=== PATIENT | male | born 1995 | race Native Hawaiian/Other Pacific Islander ===

== ENCOUNTER 2017-09-26 07:48 | Outpatient (CLI) | payer OTHER ==
--- NOTE | 2017-09-26 11:10 | MRI Report ---
EXAM: LEFT KNEE MRI WITHOUT CONTRAST EXAM DATE: 09/26/2017 08:33 AM. CLINICAL HISTORY: SPRAIN OF POSTERIOR CRUCIATE LIGAMENT OF LT KNEE. COMPARISON: None. TECHNIQUE: Multiplanar, multisequence T1-weighted and fluid-sensitive sequences of the knee without c ontrast. Other: None. FINDINGS: Bones: No fractures or subluxations. No marrow edema. No bone lesions. Articular Cartilage: Unremarkable. Medial Meniscus: The medial meniscus is intact. Lateral Meniscus: The lateral meniscus is intact. Cruciate Ligaments: The anterior and posterior cruciate ligaments are intact. Collateral Ligaments: The medial collateral and lateral collateral ligamentous structures are intact. Tendons: The quadriceps, patellar, semimembranosus, and popliteus tendons are unremarkable. Musculature: No edema or fatty atrophy. Other: No effusion. No popliteal cyst. No loose bodies. The medial and lateral retinacula are intact . The subcutaneous tissues and fat pads are unremarkable. IMPRESSION: No MRI abnormalities in the knee. [facility] MUSCULOSKELETAL RADIOLOGY SECTION Referring Provider Line: [phone] SITE ID: [id number]
== END 2017-09-26 07:49 | disposition home or self-care (01) ==
LOC: DI 07:48
PROVIDERS: ATTEND Student in an Organized Health Care Education/Training Program
DX: M23.52 Chronic instability of knee, left knee (principal)

== ENCOUNTER 2019-04-20 12:10 | Emergency (ER) | payer OTHER ==
[2019-04-20 12:27] VITALS: BP 138/84
[2019-04-20] MEDS ORDERED: KETOROLAC 60 MG/2 ML VIAL IM STA (13:52)
[2019-04-20] MEDS ORDERED: CHERRY SYRUP 10 ML UDC PO ONE (13:52)
[2019-04-20] MEDS ORDERED: DEXAMETHASONE 10 MG/ML VIAL PO STA (13:52)
--- NOTE | 2019-04-20 13:52 | ED Physician Documentation ---
PD HPI URI - Stated complaint Stated Complaint: COUGH/TERRY - Chief complaint Chief Complaint: Fever - History obtained from History obtained from: Patient, Family - History of Present Illness Timing - onset: How many days ago (5) Timing duration: Days (5) Timing details: Gradual onset, Still present Associated symptoms: Fever, Nasal congestion, Rhinorrhea, Sinus pain, Sore throat, Dry cough, Other (headache) Contributing factors: Sick contact (son now sick with similar) Improves by: Rest, Medication Similar symptoms before: Has not had sx before Recently seen: Not recently seen - Additional information Additional information: Previously well 23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 He states the headache is now worsening. He had a sore throat and that has now improved to the point where he can swallow. He has brought his young son and here who is caught this from him and he was positive for influenza B. Review of Systems Constitutional: reports: Fever, Chills, Myalgias, Fatigue Eyes: reports: Photophobia. denies: Decreased vision Ears: denies: Ear pain Nose: reports: Rhinorrhea / runny nose, Congestion Throat: reports: Sore throat Cardiac: denies: Chest pain / pressure, Palpitations Respiratory: reports: Dyspnea, Cough : denies: Dysuria Skin: denies: Rash PD PAST MEDICAL HISTORY - Present Medications Home Medications: Ambulatory Orders Medication Instructions Recorded Confirmed Amox/Clav 875/125 [Augmentin] 1 each PO Q12H #20 tablet 04/20/19 - Allergies Allergies/Adverse Reactions: Allergies Allergy/AdvReac Type Severity Reaction Status Date / Time No Known Drug Allergies Allergy Verified 04/20/19 12:27 PD ED PE NORMAL - Vitals Vital signs reviewed: Yes (hypertensive) - General General: Alert and oriented X 3, Well developed/nourished, Other (patient looks like he does not feel well. 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, No motor deficit, No sensory deficit, Normal speech Eye Opening: Spontaneous Motor: Obeys Commands Verbal: Oriented GCS Score: 15 - Psych Psych: Normal mood, Other (affect is flat ) Results - Vitals Vitals: Vital Signs - 24 hr 04/20/19 12:24 Temperature 36.9 C Heart Rate 84 Respiratory 16 Rate Blood Pressure 138/84 H O2 Saturation 98 Oxygen O2 Source Room air PD MEDICAL DECISION MAKING - ED course Complexity details: reviewed results, re-evaluated patient, considered diff erential, d/w patient, d/w family ED course: 23-year-old male with a headache and URI exposed to influenza is administered dexamethasone 10 mg orally and Toradol 60 mg IM. He has been ill 5 days and Tamiflu is not indicated. He has OM in addition to the flu and antibiotic is indicated. Departure - Departure Disposition: 01 Home, Self Care Clinical Impression: Influenza B Otitis media Qualifiers: Otitis media type: suppurative Chronicity: acute Laterality: bilateral Recurrence: non-recurrent Spontaneous tympanic membrane rupture: without spontaneous rupture Qualified Code(s): H66.003 - Acute suppurative otitis media without spontaneous rupture of ear drum, bilateral Condition: Stable Instructions: ED Flu, ED Otitis Media Acute Adult Follow-Up: MINERVA HDEZ MD [Primary Care Provider] - Prescriptions: Amox/Clav 875/125 [Augmentin] 1 each PO Q12H #20 tablet Forms: Activity restrictions
== END 2019-04-20 14:14 | disposition home or self-care (01) ==
LOC: ED 12:10
DX: J10.1 Influenza due to other identified influenza virus with other respiratory manifestations (principal); H66.003 Acute suppurative otitis media without spontaneous rupture of ear drum, bilateral
CPT/HCPCS: 96372; 99283; 99284; A9270

== ENCOUNTER 2021-09-23 12:45 | Outpatient (CLI) | payer OTHER ==
[2021-09-23 13:37] VITALS: BP 121/75
--- NOTE | 2021-09-23 13:38 | SLEEP CARE CONSULTATION ---
Information from patient questionnaire entered by Norma Shankar MA. I have reviewed and concur with the information entered by Norma Shankar MA. This document represents the service I personally performed and the decisions made by me, Abbi Jean-Baptiste ARNP. History of Present Illness Service Date and Time: 09/23/2021 1245 Reason for Visit: New patient (ONSET 06/01/21, ) Chief Complaint: reports: Insomnia, Unrefreshed sleep, Snoring, Observed pauses in breathing Date of Onset: 6 MONTHS Usual bedtime: 6189-2175 Time it takes to fall asleep: 1-3 HOURS Snores at night: Yes Observed to quit breathing while asleep: Yes (per ) Sleeps alone due to snoring: No Number of times waking at night: 2-4 Reasons for waking at night: reports: Gasping for air (when his nostril will clog), Pain, Bathroom, Other. denies: Choking, Snoring Toss, Turn, or Twitch while sleeping: Yes Recalls having dreams: Yes Usually gets out of bed at: [id number] Feels refreshed in the morning: No (takes an hour to fully wake up) Morning headache: Yes (3-4 days a week, minor; last until afternoon to days) Sleepy or fatigued during the day: Yes Ever fallen asleep while driving: No Takes day naps: No Dreams during day naps: No Prior sleep studies: No Additional HPI information: I had the pleasure of seeing LORAINE SUAREZ today regarding the possibility of him having a sleep disorder. His current complaints are insomnia, snoring and observed pauses in breathing. He was seeing his PCM for his hypertension and migraines. He was told he needed a sleep study to see if he had sleep apnea. He has difficulty falling asleep at night, usually over an hour, 1-3 at times. He feels sometimes like his body goes to sleep but his mind keeps on working. Once he goes to sleep he will sleep throughout the night. He will wake up 2-4 times a night and is able to go back to sleep. His symptoms seem to have increased about 6 months ago when he had his workload at work doubled when he lost his counterpart worker to help him in his job. 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 Patient is and lives in [place]. Have you smoked in the past 12 months: No Alcohol use: Yes Alcohol amount and frequency: 8-12 X MONTHLY Caffeine use: Yes Caffeine amount and frequency: 3-5 X DAILY Family History Family history of sleep disordered breathing: No Allergies and Home Medications Drug allergies reviewed: Yes (NKDA) Home medication list reviewed: Yes Allergy and home medication list: Allergies No Known Drug Allergies Allergy (Verified 04/20/19 12:27) Medications: Hydrochlorothiazide 12.5 mg Lisinopril 10 mg Sumatriptan 25 mg, prn Zofran 4 mg, prn Review of Systems Weight gain over past 5 years: 30-35 lbs after knee injury Cardiovascular: reports: high blood pressure Gastrointestinal: reports: heartburn Neurological: reports: headaches. denies: seizure, head trauma Psychiatric: denies: anxiety, depression, mood disorder Ear/Nose/Throat: reports: wisdom teeth removed. denies: tonsillectomy Immunologic: denies: allergies to food or environment Physical Exam Vital signs obtained and entered by: Eduardo SHANKAR CMA AAMA Blood Pressure: 121/75 (RESP 16, PULSE 68, LEFT) Cuff size: wrist Heart Rate: 76 O2 Saturation: 98 (PAPER MASK) Height: 5 ft 9 in Weight: 182 lb (PT CLOTHES) Body Mass Index: 26.9 BMI Classification: Overweight Neck circumference: 14 (INCHES) Mouth and throat: narrow oropharynx Soft palate: long Hard palate: normal Uvula: long Uvula visualization: 50% Mallampati Class II Tongue: enlarged in size with teeth rowe on lateral edges Tonsils: small Neck: normal w/o lymphadenopathy or thyromegaly Heart: regular rate and rhythm Lungs: clear bilaterally Impression and Plan 1. Suspected Obstructive Sleep Apnea-Hypopnea Syndrome, as suggested by a history of loud and irregular snoring, observed cessation of breath while asleep, gasping or choking in sleep, morning headache, unrefreshed sleep, and excessive daytime sleepiness. Narrow oropharynx and obesity are common predisposing factors for obstructive sleep apnea-hypopnea syndrome. I recommend proceeding to polysomnography to confirm the diagnosis and to assess severity. If the patient has significant sleep disordered breathing, a manual CPAP titration study will also be performed to find the optimal treatment pressure. I informed the patient of what the sleep studies involve and after some discussion, obtained agreement to proceed. The pathophysiology of obstructive sleep apnea-hypopnea syndrome was discussed with the patient and health risks of cardiovascular and cerebrovascular disease if not treated. Risks of drowsy driving discussed in detail and patient advised to avoid long distance driving and to last puller at the first sign of drowsiness. Patient agreed to plan. * Schedule polysomnography * Avoid long distance driving or driving when feeling sleepy. * Avoid alcohol, sedative and muscle relaxant around bedtime. * Attempt to lose weight. * Review instructions provided by trained office staff on how to prepare for the sleep study. * Return for follow-up after sleep study completed. Counseling Topics: Weight loss health impact Visit Type: In Office Time Spent with Patient (minutes): 30 Provider Statement: I spent 100% of the Face to Face Visit with the patient with greater than 50% spent counseling the patient and coordination of care.
== END 2021-09-23 12:46 | disposition home or self-care (01) ==
LOC: SC 12:45
PROVIDERS: ATTEND Nurse Practitioner Family
DX: R06.83 Snoring (principal); R06.81 Apnea, not elsewhere classified; G47.8 Other sleep disorders; R51.9 Headache, unspecified; G47.10 Hypersomnia, unspecified; E66.3 Overweight; Z68.26 Body mass index [BMI] 26.0-26.9, adult
CPT/HCPCS: 99203; 99212

== ENCOUNTER 2021-10-25 09:44 | Outpatient (CLI) | payer OTHER ==
[2021-10-25 10:15] VITALS: BP 126/78
--- NOTE | 2021-10-25 10:15 | SLEEP CARE CONSULTATION ---
Information from patient questionnaire entered by Norma Reich MA. I have reviewed and concur with the information entered by Norma Reich MA. This document represents the service I personally performed and the decisions made by me, Sonido Ingram MD, [facility]. History of Present Illness Service Date and Time: 10/25/2021 0944 Initial [place] Sleepiness Scale score: 9 (08/2021) Current [place] Sleepiness Scale score: 11 (10/25/2021) Additional HPI information: Mr. Fox returned for follow up of the sleep study he had on 10/05/21. The test showed No significant sleep disordered breathing, with an AHI of 0.6/hr and kailey SaO2 of 91%. During the study, the patient had 2 apneas (2 obstructive, 0 central, 0 mixed) and 2 hypopneas. The longest episode lasted 38.0 seconds. The patient did not sleep supine during this study. The patient was informed of these findings. I explained to him that he does not have significant sleep-disordered breathing. He said he was referred for the test because he has hypertension. Sleep Study - Results Type of Sleep Study: Home sleep study (F/U HOME STUDY, 10/05/21 [facility] [place],) Prior sleep studies: No Allergies and Home Medications Known drug allergies: No Drug allergies reviewed: Yes Home medication list reviewed: Yes Allergy and home medication list: Allergies No Known Drug Allergies Allergy (Verified 04/20/19 12:27) Review of Systems Review of systems same as previous: Yes Physical Exam Vital signs obtained and entered by: MADISON LANGFORD Blood Pressure: 126/78 (RESP 16, PULSE 56, LEFT,) Cuff size: wrist Heart Rate: 67 O2 Saturation: 98 (PAPER MASK) Height: 5 ft 9 in Weight: 184 lb (PT CLOTHES) Body Mass Index: 27.1 BMI Classification: Overweight Impression and Plan IMPRESSION: 1. Hypertension, not explained by obstructive sleep apnea-hypopnea. Further evaluation per his primary care provider. PLAN: 1. Return to the sleep center on as needed basis Follow up with Sleep Care in: as needed Visit Type: In Office Time Spent with Patient (minutes): 10 Provider Statement: I spent 100% of the Face to Face Visit with the patient with greater than 50% spent counseling the patient and coordination of care.
== END 2021-10-25 09:45 | disposition home or self-care (01) ==
LOC: SC 09:44
PROVIDERS: ATTEND Internal Medicine Pulmonary Disease
DX: I10 Essential (primary) hypertension (principal); E66.3 Overweight; Z68.27 Body mass index [BMI] 27.0-27.9, adult
CPT/HCPCS: 99212

== ENCOUNTER 2022-02-16 18:34 | Emergency (ER) | payer OTHER ==
[2022-02-16] MEDS ORDERED: ALBUTEROL 1 PUFF INH STA (20:31)
--- NOTE | 2022-02-16 20:39 | ED Physician Documentation ---
History of Present Illness - Stated complaint Stated Complaint: M/C/WHEEZE - Chief complaint Chief Complaint: Resp - Additonal information Additional information: 26-year-old male presents emergency department for evaluation of cough congest ion and left ear pain as well as wheeze. Symptoms began about 4 days ago. Initially started as a dry cough but has become much more wet and he is having copious nasal secretions. He feels a wheeze when he coughs too hard. He does have some left ear pain that started today but he has not had any fevers nausea or vomiting. He is vaccinated for COVID-19. He has tried Mucinex, Robitussin and TheraFlu without relief Review of Systems Constitutional: denies: Fever, Chills Eyes: reports: Reviewed and negative Ears: reports: Ear pain Nose: reports: Congestion Respiratory: reports: Cough, Wheezing. denies: Dyspnea, Hemoptysis GI: reports: Reviewed and negative : reports: Reviewed and negative Skin: reports: Reviewed and negative Musculoskeletal: reports: Reviewed and negative PD PAST MEDICAL HISTORY - Past Medical History Past Medical History: Yes Cardiovascular: None Respiratory: None Neuro: Migraines Endocrine/Autoimmune: None GI: None : None HEENT: None Psych: None Musculoskeletal: None Derm: None - Past Surgical History Past Surgical History: No - Present Medications Home Medications: Ambulatory Orders Medication Instructions Recorded Confirmed Amox/Clav 875/125 [Augmentin] 1 each PO Q12H #20 tablet 04/20/19 Albuterol Sulf [Ventolin Hfa 1 - 2 puffs INH Q4HR PRN #1 each 02/16/22 Inhaler] Pseudoephedrine [Sudafed] 30 mg PO BID PRN #30 tablet 02/16/22 - Allergies Allergies/Adverse Reactions: Allergies Allergy/AdvReac Type Severity Reaction Status Date / Time No Known Drug Allergies Allergy Verified 02/16/22 19:00 - Social History Does the pt smoke?: No Smoking Status: Never smoker Does the pt drink ETOH?: No Does the pt have substance abuse?: No - Immunizations Immunizations are current?: Yes - POLST Patient has POLST: No PD ED PE NORMAL - General General: Alert and oriented X 3, No acute distress - HEENT HEENT: Atraumatic, PERRL, EOMI, Moist mucous membranes, Pharynx benign, Other (Copious nasal secretions). No: Ears normal (Effusion behind the left ear. Unremarkable right TM) - Neck Neck: Supple, no meningeal sign, No adenopathy - Cardiac Cardiac: RRR, No murmur - Respiratory Respiratory: No respiratory distress. 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 Eye Opening: Spontaneous Motor: Obeys Commands Verbal: Oriented GCS Score: 15 Results - Vitals Vitals: Vital Signs - 24 hr 02/16/22 02/16/22 02/16/22 18:56 20:08 20:26 Temperature 98.6 C H Heart Rate 92 87 80 Respiratory 14 17 17 Rate Blood Pressure 145/100 H O2 Saturation 100 97 100 Oxygen O2 Source Room air - Rads (name of study) cxr Radiology: Final report received (No acute cardiopulmonary pathology) PD MEDICAL DECISION MAKING - ED course Complexity details: reviewed results, re-evaluated patient, considered differential, d/w patient ED course: 26-year-old male presents emergency department for evaluation of cough congestion wheeze and body aches. Also reporting left ear pain today. He is fully vaccinated and boosted for COVID. Cardiopulmonary auscultation revealed a faint scattered expiratory wheezes. Chest x-ray was negative. Here in the emergency department he was given albuterol with RT which he felt markedly improved his symptoms. On exam he did have an effusion behind the left ear but given the lack of pain or fevers my suspicion for bacterial otitis media is rather low. I making the recommendation that the patient use Benadryl as an anticholinergic overnight to help with eustachian tube drainage and Sudafed during the day. He can continue to use the albuterol as needed. If not markedly better or symptoms Worsen then he will return to the ER for a second evaluation. Departure - Departure Disposition: 01 Home, Self Care Clinical Impression: Acute effusion of left ear, Viral upper respiratory infection Condition: Stable Record reviewed to determine appropriate education?: Yes Prescriptions: Albuterol Sulf [Ventolin Hfa Inhaler] 1 - 2 puffs INH Q4HR PRN #1 each PRN Reason: Shortness Of Air/Wheezing Pseudoephedrine [Sudafed] 30 mg PO BID PRN #30 tablet PRN Reason: Cough Comments: Daniel you are seen today in the emergency department because for a few days you have had cough congestion and now left ear pain. You have a viral upper respiratory infection. Your chest x-ray was normal. You have not had any fevers. You were little wheezy when you came into the emergency department. We did give you some albuterol which seemed to help with your symptoms. [place] I would like you to use this 4-6 times a day while you have your cough. In order to help dry up your secretions and improve the effusion behind your left ear please take 50 mg of Benadryl at nighttime. During the daytime you can take 30 mg of Sudafed once or twice a day but do not take this for longer than 2 to 3 days. In general most viral upper respiratory infections will begin to resolve between 5 and 7 days. I would like you to return sooner to the emergency department if you develop any fevers, have ear drainage, worsening pain or worsening symptoms despite this treatment.
--- NOTE | 2022-02-16 21:02 | XRAY Report ---
PROCEDURE: Chest 1 View X-Ray INDICATIONS: chest pain TECHNIQUE: One view of the chest was acquired. COMPARISON: None FINDINGS: Surgical changes and devices: None. Lungs and pleura: No pleural effusions or pneumothorax. Lungs are clear. Mediastinum: Mediastinal contours appear normal. Heart size is normal. Bones and chest wall: No suspicious bony lesions. Overlying soft tissues appear unremarkable. IMPRESSION: No acute cardiopulmonary pathology. Reviewed by: Srini Harper MD on 02/16/2022 9:01 PM PDT Approved by: Srini Harper MD on 02/16/2022 9:01 PM PDT Station ID: [id number]
[2022-02-16 21:24] VITALS: BP 133/81
== END 2022-02-16 21:23 | disposition home or self-care (01) ==
LOC: ED 18:34
DX: J06.9 Acute upper respiratory infection, unspecified (principal); B97.89 Other viral agents as the cause of diseases classified elsewhere; H93.8X2 Other specified disorders of left ear
CPT/HCPCS: 94640; 99282; 99283

== ENCOUNTER 2022-12-22 10:17 | Emergency (ER) | payer OTHER ==
[2022-12-22] MEDS ORDERED: lisinopriL 5 MG TABLET PO STA (11:10)
[2022-12-22] MEDS ORDERED: hydroCHLOROthiazide 25 MG TABLET PO STA (11:10)
--- NOTE | 2022-12-22 11:16 | ED Physician Documentation ---
History of Present Illness - Stated complaint Stated Complaint: HIGH BP - Chief complaint Chief Complaint: General - History obtained from History obtained from: Patient, EMS - Additonal information Additional information: The patient comes to the emergency department chief complaint of high blood pressure reading in clinic today. The patient is employed by the [employer] and had just gotten off watch and went in for routine physical exam. He was not having any symptoms, other than being tired from his overnight shift, but was found to have a blood pressure in the 180s over low 100s and was sent here to the ED by the clinic. The patient denies any chest pain, shortness of breath, stroke symptoms, or change in urine output. He states he has been on lisinopril 5 or 10 mg and hydrochlorothiazide 25 mg since June of this year. He states that his blood pressures were similar to what he has had today before he got on the meds, but once he got on the meds, his pressures came down to the 120s over 80s. However, he states that every time he took the medicines, he would feel drowsy and be urinating all the time and he did not like that, so he stopped his meds several weeks ago. He has not been in to see his doctor since, until today. He is otherwise healthy. No other complaints at this time. PD PAST MEDICAL HISTORY - Past Medical History Past Medical History: Yes Cardiovascular: None, High cholesterol Respiratory: None Neuro: Migraines Endocrine/Autoimmune: None GI: None : None HEENT: None, Dental implants Psych: None Musculoskeletal: None Derm: None - Past Surgical History Past Surgical History: No - Present Medications Home Medications: Ambulatory Orders Medication Instructions Recorded Confirmed Lisinopril [Zestril] 10 mg PO DAILY #30 tablet 12/22/22 hydroCHLOROthiazide [Hydrodiuril] 25 mg PO DAILY #30 tablet 12/22/22 - Allergies Allergies/Adverse Reactions: Allergies Allergy/AdvReac Type Severity Reaction Status Date / Time No Known Drug Allergies Allergy Verified 12/22/22 10:22 - Social History Does the pt smoke?: No Smoking Status: Never smoker Does the pt drink ETOH?: No Does the pt have substance abuse?: No - Immunizations Immunizations are current?: Yes - POLST Patient has POLST: No PD ED PE NORMAL - Vitals Vital signs reviewed: Yes - General General: Alert and oriented X 3, No acute distress - HEENT HEENT: Atraumatic, PERRL, EOMI, Moist mucous membranes - Neck Neck: Supple, no meningeal sign - Cardiac Cardiac: RRR, No murmur, Strong equal pulses - Respiratory Respiratory: No respiratory distress, Clear bilaterally - Abdomen Abdomen: Soft, Non tender, Non distended - Derm Derm: Normal color, Warm and dry, No rash - Extremities Extremities: No deformity - Neuro Neuro: Alert and oriented X 3, ladle patcher 2-12 intact, Normal speech, Other (Grossly normal otherwise) - Psych Psych: Normal mood, Normal affect Results - Vitals Vitals: Vital Signs - 24 hr 12/22/22 10:23 Temperature 36.7 C Heart Rate 72 Respiratory 16 Rate Blood Pressure 183/127 H O2 Saturation 99 Oxygen O2 Source Room air - EKG (time done) 1018 EKG releavant findings:: EKG personally interpreted by author of this note. Relevant findings are: Rate: Rate (enter#) (64) Rhythm: NSR [place]: Normal Intervals: Normal [place] QRS: Normal Ischemia: ST elevation c/w repol Compare to prior EKG: Old EKG unavailable Computer interpretation: Agree with computer PD Medical Decision Making - ED course Complexity details: reviewed results, re-evaluated patient, considered differential, d/w patient ED course: The patient was extremely well-appearing in the emergency department and was completely asymptomatic with regard to his blood pressure. We have discussed that he does need to stay on blood pressure medication because the blood pressure that he currently has will do significant damage over the long run. He is not in hypertensive emergency or even urgency at this time. He would prefer to go back on his lisinopril and hydrochlorothiazide as opposed to dropping the hydrochlorothiazide and increasing his lisinopril dose. I have ordered doses of both of his meds here so that he can go home and go to sleep without f orgetting to take his morning dose of medications. I have refilled that his blood pressure medications also to be sure he has enough until he can be seen by [facility] to discuss perhaps being on a different regimen. We have discussed of the usual indications for return. Departure - Departure Disposition: 01 Home, Self Care Clinical Impression: Hypertension, uncontrolled Condition: Stable Instructions: ED Hypertension Conf Out Of Control Prescriptions: hydroCHLOROthiazide [Hydrodiuril] 25 mg PO DAILY #30 tablet Lisinopril [Zestril] 10 mg PO DAILY #30 tablet Comments: It is very important that you take your blood pressure medicines to prevent long-term damage to your cardiovascular system as well as other vital organs that are dependent on good blood flow. Your blood pressure today was 180s over 120s, which is quite high. As you have not had any symptoms to indicate damage or stress to your vital organs from this high blood pressure, You are not in need of emergent lowering of your blood pressure. However, it is important to restart your meds today, and we have given you your first doses of your medicines here in the ED. Prescriptions for both your hydrochlorothiazide and lisinopril have been electronically transmitted to the [facility] pharmacy in [place], your pharmacy of choice on record. Please pick those up today. If you are having issues with side effects from your medicines and these are making it unpleasant to be on the medicines, then please schedule an appointment to talk to your doctor about perhaps changing your medication regimen, as there are many options for blood pressure treatment. If you develop chest pain, shortness of breath, or strokelike symptoms, please return to the emergency department immediately.
[2022-12-22 11:39] VITALS: BP 163/123; O2SAT 100
== END 2022-12-22 11:32 | disposition home or self-care (01) ==
LOC: EDUNIT# → ED 10:17
DX: I10 Essential (primary) hypertension (principal); E78.00 Pure hypercholesterolemia, unspecified; Z79.899 Other long term (current) drug therapy
CPT/HCPCS: 93005; 99283; 99284; A9270

== ENCOUNTER 2023-06-28 12:35 | Emergency (ER) | payer OTHER ==
[2023-06-28 13:02] VITALS: O2SAT 100
--- NOTE | 2023-06-28 14:21 | XRAY Report ---
PROCEDURE: Foot 3+V LT INDICATIONS: lateral foot pain TECHNIQUE: 3 views of the foot were acquired. COMPARISON: None. FINDINGS: Bones: No fractures or dislocations. No suspicious bony lesions. Soft tissues: No suspicious soft tissue calcifications or masses. IMPRESSION: No acute bony abnormality. If there is high concern for further derangement, consider MRI evaluation. Reviewed by: Bruce Jose MD on 06/28/2023 2:19 PM PST Approved by: Bruce Jose MD on 06/28/2023 2:19 PM [facility] Station ID: [id number]
--- NOTE | 2023-06-28 14:26 | ED Physician Documentation ---
PD HPI LOWER EXT INJURY - Stated complaint Stated Complaint: LT FOOT PX - Chief complaint Chief Complaint: Ext Problem - History obtained from History obtained from: Patient - Additional information Additional information: Patient is a 27-year-old male presenting for evaluation of left foot pain that he states has been ongoing for 2 weeks. Patient states that initially was only a dull pain but has been recently worse in the last few days. He has been flying a lot for his job with the [employer] including to [place] and then also to [employer] and then [employer]. He states he has been wearing his work boots which are tight. He is also been resting his feet he believes on the lateral aspects during the flights. He denies any calf swelling. Reports that sometimes when he is walking he feels some pain shoot up into the lower leg. Denies history of PE or DVT. Review of Systems Constitutional: denies: Fever Cardiac: denies: Chest pain / pressure Respiratory: denies: Dyspnea GI: denies: Abdominal Pain Musculoskeletal: reports: Extremity pain PD PAST MEDICAL HISTORY - Past Medical History Past Medical History: Yes Cardiovascular: None, High cholesterol Respiratory: None Neuro: Migraines Endocrine/Autoimmune: None GI: None : None HEENT: Dental implants, None Psych: None Musculoskeletal: None Derm: None - Past Surgical History Past Surgical History: No - Present Medications Home Medications: Ambulatory Orders Medication Instructions Recorded Confirmed Lisinopril [Zestril] 10 mg PO DAILY #30 tablet 12/22/22 06/28/23 hydroCHLOROthiazide [Hydrodiuril] 25 mg PO DAILY #30 tablet 12/22/22 06/28/23 - Allergies Allergies/Adverse Reactions: Allergies Allergy/AdvReac Type Severity Reaction Status Date / Time No Known Drug Allergies Allergy Verified 06/28/23 12:48 - Social History Does the pt smoke?: No Smoking Status: Never smoker Does the pt drink ETOH?: No Does the pt have substance abuse?: No - Immunizations Immunizations are current?: Yes - POLST Patient has POLST: No PD ED PE NORMAL - General General: Alert and oriented X 3, No acute distress, Well developed/nourished - HEENT HEENT: Atraumatic - Neck Neck: Supple, no meningeal sign - Cardiac Cardiac: Strong equal pulses - Respiratory Respiratory: No respiratory distress - Derm Derm: Warm and dry, No rash - Extremities Extremities: No deformity, No edema, No calf tenderness / cord, Other (Tenderness along the lateral aspect of the left foot) Results - Vitals Vitals: Vital Signs - 24 hr 06/28/23 06/28/23 12:45 14:30 Temperature 36.5 C 36.5 C Heart Rate 81 80 Respiratory 18 16 Rate Blood Pressure 152/92 H 130/88 H O2 Saturation 100 100 Oxygen O2 Source Room air - Labs Labs: Laboratory Tests 06/28/23 13:08 D-Dimer 223.9 PD Medical Decision Making - ED course ED course: Patient with pain to the left foot which sometimes radiates to the left calf over the past couple of weeks. No reported trauma. Has been flying a lot lately including overseas. No other risk factors for DVT. D-dimer was obtained and is negative and he also has no calf tenderness or swelling on exam today. He reports mild tenderness to the lateral left foot so an x-ray was obtained which I reviewed I see no fracture, dislocation or foreign body. There are no exam findings to suggest a necrotizing infection. No open wounds. At this time will recommend postop shoe and crutches and continued supportive care as well as close follow-up. Patient is advised on concerning symptoms to return for. Departure - Departure Disposition: 01 Home, Self Care Clinical Impression: Left foot pain Condition: Stable Instructions: ED RICE Follow-Up: VIKTOR Tovar [Provider Group] Comments: The marker that checks for a blood clot it was negative. Your x-ray also does not show any signs of a broken bone or foreign body in the foot. We have given you a postop shoe and crutches and would recommend staying off the foot for a few days as well as continuing with anti-inflammatories and ice to see if this helps. If your pain is not getting better then I would recommend close follow- up at the [place] [facility]. Return to the ER with worsening symptoms. Forms: PCP List, Activity restrictions Discharge Date/Time: 06/28/23 14:29
[2023-06-28 14:31] VITALS: BP 130/88
== END 2023-06-28 14:29 | disposition home or self-care (01) ==
LOC: ED 12:35
DX: M79.672 Pain in left foot (principal)
CPT/HCPCS: 36415; 85379; 99283; 99284